=== PATIENT | male | born 1985 | race African-American/Black ===

== ENCOUNTER 2021-08-09 18:17 | Emergency (ER) | payer MEDICAID, OTHER ==
[~2021-08-09] VITALS: Ht 188 cm; Wt 129.3 kg
[2021-08-09 20:32] VITALS: BP 142/74
== END 2021-08-09 21:43 | disposition home or self-care (01) ==
LOC: ER 18:18
DX: D17.0 Benign lipomatous neoplasm of skin and subcutaneous tissue of head, face and neck (principal); K64.8 Other hemorrhoids; E66.9 Obesity, unspecified; Z68.36 Body mass index [BMI] 36.0-36.9, adult
CPT/HCPCS: 72125